=== PATIENT | female | born 1985 | race American Indian/Alaskan Native ===

== ENCOUNTER 2018-04-17 20:40 | Emergency (ER) | payer MEDICAID ==
[2018-04-17 21:07] VITALS: BP 117/71
[2018-04-17 23:56] LABS: HCG Qualitative,Urine Positive (Negative)
[2018-04-17 23:58] LABS: Bilirubin,Urine NEG (Negative); Blood,Urine NEG (Negative); Color,Urine Yellow (Yellow); Mucus,Urine 3+ /HPF; Protein,Urine <15 mg/dL mg/dL (Negative)
--- NOTE | 2018-04-18 01:25 | Emergency Department Report ---
- General Chief Complaint: Upper Respiratory Infection Stated Complaint: NAUSEA,DIZZY Time Seen by Provider: 04/18/18 00:58 Source: patient Mode of arrival: Ambulatory Limitations: No Limitations - History of Present Illness Initial Comments: 32-year-old -Indian female comes in complaining of nausea and vomiting and lightheadedness intermittent times one week. Patient reports she only vomited approximately once a week. Patient states that she has sinus pressure and postnasal drip. Patient has taken nothing for the congestion and took Advil for headache. Patient denies any fever chills no current nausea or current vomiting. No past medical history currently takes no medications on a daily basis and has no known drug allergies. MD Complaint: nasal congestion, sinus pain, other -: week(s) (1) Severity scale (0 -10): 5 (os nasal drip) Improves With: other (has not tried anything) Associated Symptoms: denies other symptoms Treatments Prior to Arrival: none - Related Data Home Medications Medication Instructions Recorded Confirmed Last Taken Vit,Calc76/Iron/Folic 1 tab PO DAILY 04/24/13 11/30/14 11/28/14 10:00 [Prenatabs Rx Tablet] 1 tab Previous Rx's Medication Instructions Recorded Last Taken Type Hydrocodone Bit/Acetaminophen 1 each PO Q6HR PRN #20 tablet 04/26/13 Unknown Rx [Lortab 5-500 Tablet] Ibuprofen [Motrin] 800 mg PO TID PRN #90 tablet 04/26/13 Unknown Rx Dexchlorpheniram/Phenylephrine 1 each PO Q6H #16 tab 04/18/18 Unknown Rx [Rymed Tablet] Fluticasone [Flonase] 1 spray NS QDAY #1 bottle 04/18/18 Unknown Rx Allergies Allergy/AdvReac Type Severity Reaction Status Date / Time No Known Allergies Allergy Verified 11/30/14 16:07 ED Review of Systems ROS: Stated complaint: NAUSEA,DIZZY Other details as noted in HPI ENT: congestion, other (postnasal drip, sinus pressure) ED Past Medical Hx - Past Medical History Hx Hypertension: No Hx Congestive Heart Failure: No Hx Diabetes: No Hx Deep Vein Thrombosis: No Hx Renal Disease: No Hx Sickle Cell Disease: No Hx Seizures: No Hx Asthma: No Hx COPD: No Hx HIV: No - Social History Smoking Status: Never Smoker Substance Use Type: None - Medications Home Medications: Home Medications Medication Instructions Recorded Confirmed Last Taken Type Vit,Calc76/Iron/Folic 1 tab PO DAILY 04/24/13 11/30/14 11/28/14 10:00 History [Prenatabs Rx Tablet] 1 tab Hydrocodone Bit/Acetaminophen 1 each PO Q6HR PRN #20 tablet 04/26/13 11/30/14 Unknown Rx [Lortab 5-500 Tablet] Ibuprofen [Motrin] 800 mg PO TID PRN #90 tablet 04/26/13 11/30/14 Unknown Rx Dexchlorpheniram/Phenylephrine 1 each PO Q6H #16 tab 04/18/18 Unknown Rx [Rymed Tablet] Fluticasone [Flonase] 1 spray NS QDAY #1 bottle 04/18/18 Unknown Rx ED Physical Exam - General Limitations: No Limitations General appearance: alert, in no apparent distress - Head Head exam: Present: atraumatic, normocephalic - Eye Eye exam: Present: EOMI - ENT ENT exam: Present: mucous membranes moist - Neck Neck exam: Present: full ROM. Absent: tenderness, lymphadenopathy - Respiratory Respiratory exam: Present: normal lung sounds bilaterally. Absent: respiratory distress - Cardiovascular Cardiovascular Exam: Present: regular rate, normal rhythm. Absent: systolic murmur, diastolic murmur, rubs, gallop - Neurological Exam Neurological exam: Present: alert, oriented X3 - Psychiatric Psychiatric exam: Present: normal affect, normal mood - Skin Skin exam: Present: warm, dry, intact, normal color. Absent: rash ED Course Vital Signs 04/17/18 21:05 Temperature 98.4 F Pulse Rate 91 H Respiratory 16 Rate Blood Pressure 117/71 O2 Sat by Pulse 99 Oximetry ED Medical Decision Making - Medical Decision Making Patient has been evaluated by this provider fast track. Discussed the patient she can get [id number] Claritin, Zyrtec or Caterina. She denies also get [id number] Flonase. She needs to increase her water intake by 1 L If her symptoms persist or gets worse to follow-up with her primary care provider. Critical care attestation.: If time is entered above; I have spent that time in minutes in the direct care of this critically ill patient, excluding procedure time. ED Disposition Clinical Impression: Allergic rhinitis Qualifiers: Allergic rhinitis trigger: unspecified Allergic rhinitis seasonality: unspecified Qualified Code(s): J30.9 - Allergic rhinitis, unspecified Disposition: DC-01 TO HOME OR SELFCARE Is pt being admited?: No Does the pt Need Aspirin: No Condition: Stable Instructions: Allergic Rhinitis (ED) Additional Instructions: Take medication as prescribed. Increase her water intake by 1 L. If her symptoms persist or gets worse follow up with her primary care provider Prescriptions: Dexchlorpheniram/Phenylephrine [Rymed Tablet] 1 each PO Q6H #16 tab Fluticasone [Flonase] 1 spray NS QDAY #1 bottle Referrals: PRIMARY CARE, [Primary Care Provider] - 3-5 Days Forms: Work/School Release Form(ED)
== END 2018-04-18 01:35 | disposition home or self-care (01) ==
LOC: ED 20:40
DX: J30.9 Allergic rhinitis, unspecified (principal); Z79.899 Other long term (current) drug therapy
CPT/HCPCS: 81001; 81025; 99283

== ENCOUNTER 2019-06-25 16:31 | Emergency (ER) | payer MEDICAID ==
--- NOTE | 2019-06-25 20:16 | Event Note ---
ED Screening Note Date of service: 06/25/19 Time: 20:13 ED Screening Note: Right Flank pain x 2 weeks. Intermittent. Non radiating. Fever on and off and generalized body aches. No n/v/d. +urinary frequency. Ua This initial assessment/diagnostic orders/clinical plan/treatment(s) is/are subject to change based on patients health status, clinical progression and re- assessment by fellow clinical providers in the ED. Further treatment and workup at subsequent clinical providers discretion. Patient/guardian urged not to elope from the ED as their condition may be serious if not clinically assessed and managed. Initial orders include: labs
[2019-06-25 20:17] VITALS: BP 124/77
[2019-06-25 20:41] LABS: Basophils # (Auto) 0.1 K/mm3 (0.0-0.1); Basophils % (Auto) 0.6 % (0.0-1.8); Eosinophils # (Auto) 0.2 K/mm3 (0.0-0.4); Eosinophils % (Auto) 2.4 % (0.0-4.3); Hematocrit 39.3 % (30.3-42.9); Hemoglobin 12.6 gm/dl (10.1-14.3); Lymphocytes # (Auto) 1.5 K/mm3 (1.2-5.4); Lymphocytes % (Auto) 15.2 % (13.4-35.0); Mean Corpuscular HGB Conc 32 % (30-34); Mean Corpuscular Volume 84 fl (79-97); Monocytes # (Auto) 1.3 K/mm3 (0.0-0.8); Monocytes % (Auto) 13.2 % (0.0-7.3); Platelet Count 323 K/mm3 (140-440); Red Blood Count 4.67 M/mm3 (3.65-5.03); Red Cell Distribution Width 17.8 % (13.2-15.2)
[2019-06-25 21:03] LABS: Alanine Aminotransferase 40 units/L (7-56); Albumin 3.9 g/dL (3.9-5); BUN/Creatinine Ratio 9; Blood Urea Nitrogen 6 mg/dL (7-17); Hemolysis Index 27
[2019-06-25] MEDS ORDERED: IBUPROFEN 800 MG TAB PO ONE (21:23)
[2019-06-25] MEDS ORDERED: ONDANSETRON 4 MG ODT TAB PO ONE (21:23)
--- NOTE | 2019-06-25 22:04 | Emergency Department Report ---
ED Abdominal Pain HPI - General Chief Complaint: Abdominal Pain Stated Complaint: FLU LIKE SYMPTOMS Time Seen by Provider: 06/25/19 20:12 Source: patient Mode of arrival: Ambulatory Limitations: No Limitations - History of Present Illness Initial Comments: Pt is a 33 y/o aaf who presents for right flank pain x 2 weeks. Right Flank pain is intermittent and Non radiating. There is no fever or chills, no n/v. There is urinary frequency. There is no hx of renal stones. MD Complaint: abdominal pain Onset/Timin -: week(s) Location: R flank Radiation: R flank Migration to: no migration Severity scale (0 -10): 6 Quality: aching Consistency: intermittent Improves With: nothing Worsens With: nothing Associated Symptoms: dysuria. denies: nausea, vomiting, diarrhea, fever, chills, constipation, melena, hematuria - Related Data LMP Date: 06/04/19 Home Medications Medication Instructions Recorded Confirmed Last Taken Vit,Calc76/Iron/Folic 1 tab PO DAILY 04/24/13 11/30/14 11/28/14 10:00 [Prenatabs Rx Tablet] 1 tab Previous Rx's Medication Instructions Recorded Last Taken Type Hydrocodone Bit/Acetaminophen 1 each PO Q6HR PRN #20 tablet 04/26/13 Unknown Rx [Lortab 5-500 Tablet] Ibuprofen [Motrin] 800 mg PO TID PRN #90 tablet 04/26/13 Unknown Rx Dexchlorpheniram/Phenylephrine 1 each PO Q6H #16 tab 04/18/18 Unknown Rx [Rymed Tablet] Fluticasone [Flonase] 1 spray NS QDAY #1 bottle 04/18/18 Unknown Rx Ibuprofen [Motrin 600 MG tab] 600 mg PO Q8H PRN #12 tablet 07/24/18 Unknown Rx Ibuprofen [Motrin 800 MG tab] 800 mg PO Q8HR PRN #30 tablet 06/25/19 Unknown Rx Nitrofurantoin [place]/M-Cryst 100 mg PO BID 7 Days #14 capsule 06/25/19 Unknown Rx [Macrobid CAP] Allergies Allergy/AdvReac Type Severity Reaction Status Date / Time No Known Allergies Allergy Verified 11/30/14 16:07 ED Review of Systems ROS: Stated complaint: FLU LIKE SYMPTOMS Other details as noted in HPI Constitutional: denies: chills, fever Eyes: denies: eye pain, eye discharge, vision change ENT: denies: ear pain, throat pain Respiratory: denies: cough, shortness of breath, wheezing Cardiovascular: denies: chest pain, palpitations Endocrine: no symptoms reported Gastrointestinal: denies: abdominal pain, nausea, vomiting, diarrhea Genitourinary: urgency, dysuria, frequency. denies: hematuria, discharge Musculoskeletal: back pain (right flank ) Skin: denies: rash, lesions Neurological: denies: headache, weakness, paresthesias Psychiatric: denies: anxiety, depression Hematological/Lymphatic: denies: easy bleeding, easy bruising ED Past Medical Hx - Past Medical History Hx Hypertension: No Hx Congestive Heart Failure: No Hx Diabetes: No Hx Deep Vein Thrombosis: No Hx Renal Disease: No Hx Sickle Cell Disease: No Hx Seizures: No Hx Asthma: No Hx COPD: No Hx HIV: No - Social History Smoking Status: Never Smoker - Medications Home Medications: Home Medications Medication Instructions Recorded Confirmed Last Taken Type Vit,Calc76/Iron/Folic 1 tab PO DAILY 04/24/13 11/30/14 11/28/14 10:00 History [Prenatabs Rx Tablet] 1 tab Hydrocodone Bit/Acetaminophen 1 each PO Q6HR PRN #20 tablet 04/26/13 11/30/14 Unknown Rx [Lortab 5-500 Tablet] Ibuprofen [Motrin] 800 mg PO TID PRN #90 tablet 04/26/13 11/30/14 Unknown Rx Dexchlorpheniram/Phenylephrine 1 each PO Q6H #16 tab 04/18/18 Unknown Rx [Rymed Tablet] Fluticasone [Flonase] 1 spray NS QDAY #1 bottle 04/18/18 Unknown Rx Ibuprofen [Motrin 600 MG tab] 600 mg PO Q8H PRN #12 tablet 07/24/18 Unknown Rx Ibuprofen [Motrin 800 MG tab] 800 mg PO Q8HR PRN #30 tablet 06/25/19 Unknown Rx Nitrofurantoin [place]/M-Cryst 100 mg PO BID 7 Days #14 capsule 06/25/19 Unknown Rx [Macrobid CAP] ED Physical Exam - General Limitations: No Limitations General appearance: alert, in no apparent distress - Head Head exam: Present: atraumatic, normocephalic - Eye Eye exam: Present: normal appearance, PERRL, EOMI Pupils: Present: normal accommodation - ENT ENT exam: Present: mucous membranes moist - Neck Neck exam: Present: normal inspection, full ROM. Absent: tenderness - Respiratory Respiratory exam: Present: normal lung sounds bilaterally. Absent: respiratory distress, wheezes, stridor, chest wall tenderness - Cardiovascular Cardiovascular Exam: Present: regular rate, normal rhythm, normal heart sounds. Absent: systolic murmur, diastolic murmur, rubs, gallop - GI/Abdominal GI/Abdominal exam: Present: soft, tenderness (right flank tenderness to deep palpation), normal bowel sounds. Absent: distended, guarding, rebound, rigid, bruit, hernia - Rectal Rectal exam: Present: deferred - Extremities Exam Extremities exam: Present: normal inspection, full ROM, normal capillary refill. Absent: tenderness - Back Exam Back exam: Present: normal inspection, full ROM, tenderness, CVA tenderness (R). Absent: CVA tenderness (L), muscle spasm, vertebral tenderness, rash noted - Neurological Exam Neurological exam: Present: alert, oriented X3, CN II-XII intact, normal gait, reflexes normal. Absent: motor sensory deficit - Psychiatric Psychiatric exam: Present: normal affect, normal mood - Skin Skin exam: Present: warm, dry, intact, normal color. Absent: rash ED Course Vital Signs 06/25/19 06/25/19 06/25/19 16:40 20:13 21:37 Temperature 99.0 F 100 F H Pulse Rate 96 H 95 H Respiratory 16 18 18 Rate Blood Pressure 119/72 124/77 O2 Sat by Pulse 99 100 Oximetry ED Medical Decision Making - Lab Data Result diagrams: 06/25/19 20:31 06/25/19 20:31 Labs 06/25/19 06/25/19 06/25/19 20:31 20:31 20:31 WBC 10.2 RBC 4.67 Hgb 12.6 Hct 39.3 MCV 84 MCH 27 L MCHC 32 RDW 17.8 H Plt Count 323 Lymph % (Auto) 15.2 [place] % (Auto) 13.2 H Eos % (Auto) 2.4 Baso % (Auto) 0.6 Lymph # 1.5 [place] # 1.3 H Eos # 0.2 Baso # 0.1 Seg Neutrophils % 68.6 Seg Neutrophils # 7.0 Sodium 137 Potassium 3.7 Chloride 102.6 Carbon Dioxide 22 Anion Gap 16 BUN 6 L Creatinine 0.7 Estimated GFR > 60 BUN/Creatinine Ratio 9 Glucose 67 Calcium 9.0 Total Bilirubin 0.20 AST 41 H ALT 40 Alkaline Phosphatase 65 Total Protein 8.0 Albumin 3.9 Albumin/Globulin Ratio 1.0 Lipase 11 L Urine Color Urine Turbidity Urine pH Ur Specific [place] Urine Protein Urine Glucose (UA) Urine Ketones Urine Blood Urine Nitrite Urine Bilirubin Urine Urobilinogen Ur Leukocyte Esterase Urine WBC (Auto) Urine RBC (Auto) U Epithel Cells (Auto) Urine Bacteria (Auto) Urine Mucus Urine HCG, Qual 06/25/19 21:55 WBC RBC Hgb Hct MCV MCH MCHC RDW Plt Count Lymph % (Auto) [place] % (Auto) Eos % (Auto) Baso % (Auto) Lymph # [place] # Eos # Baso # Seg Neutrophils % Seg Neutrophils # Sodium Potassium Chloride Carbon Dioxide Anion Gap BUN Creatinine Estimated GFR BUN/Creatinine Ratio Glucose Calcium Total Bilirubin AST ALT Alkaline Phosphatase Total Protein Albumin Albumin/Globulin Ratio Lipase Urine Color Yellow Urine Turbidity Slightly-cloudy Urine pH 5.0 Ur Specific [place] 1.016 Urine Protein <15 mg/dl Urine Glucose (UA) Neg Urine Ketones Neg Urine Blood Sm Urine Nitrite Pos Urine Bilirubin Neg Urine Urobilinogen < 2.0 Ur Leukocyte Esterase Mod Urine WBC (Auto) 37.0 H Urine RBC (Auto) 4.0 U Epithel Cells (Auto) < 1.0 Urine Bacteria (Auto) 1+ Urine Mucus Few Urine HCG, Qual Negative - Medical Decision Making This is a UTI, plan: macrobid, ibuprofen, follow up with pcp in 2-3 days. pt verbalized agreement and understanding of discharge plan. Critical care attestation.: If time is entered above; I have spent that time in minutes in the direct care of this critically ill patient, excluding procedure time. ED Disposition Clinical Impression: Flank pain UTI (urinary tract infection) Qualifiers: Urinary tract infection type: acute cystitis Hematuria presence: without hematuria Qualified Code(s): N30.00 - Acute cystitis without hematuria Disposition: TO HOME OR SELFCARE Is pt being admited?: No Does the pt Need Aspirin: No Condition: Stable Instructions: Flank Pain (ED), Urinary Tract Infection in Men (ED) Prescriptions: Nitrofurantoin [place]/M-Cryst [Macrobid CAP] 100 mg PO BID 7 Days #14 capsule Ibuprofen [Motrin 800 MG tab] 800 mg PO Q8HR PRN #30 tablet PRN Reason: pain Referrals: [facility] [Outside] - 3-5 Days Forms: Work/School Release Form(ED) Time of Disposition: 22:54
[2019-06-25 22:21] LABS: Bacteria,Urine 1+ /HPF (Negative); Bilirubin,Urine NEG (Negative); Blood,Urine SM (Negative); Color,Urine Yellow (Yellow); Mucus,Urine FEW /HPF; Protein,Urine <15 mg/dL mg/dL (Negative); Urobilinogen,Urine < 2.0 mg/dL (<2.0)
[2019-06-25 22:25] LABS: HCG Qualitative,Urine Negative (Negative)
== END 2019-06-25 23:00 | disposition home or self-care (01) ==
LOC: ED 16:31
DX: N39.0 Urinary tract infection, site not specified (principal); Z79.1 Long term (current) use of non-steroidal anti-inflammatories (NSAID); Z79.899 Other long term (current) drug therapy
CPT/HCPCS: 36415; 80053; 81001; 81025; 83690; 85025; 87076; 87086; 87186; 99284; Q0162